=== PATIENT | female | born 1945 | race Caucasian/White ===

== ENCOUNTER 2024-03-19 08:22 | Inpatient (IN) | payer OTHER ==
[~2024-03-19] VITALS: Ht 162.6 cm; Wt 84.1 kg
--- NOTE | 2024-03-19 08:46 | ECG ---
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
--- NOTE | 2024-03-19 08:58 | ED.PDOC ---
HPI (NEURO) HPI Comments 78Y F with PMHx DM, HTN, HLD, PE, breast CA, and colon resection presents to ED for chief complaint lt hand numbness x1day. 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 Per pt, rt arm/hand is not experiencing deficits. Additional symptom includes nausea. Pt denies vomiting, diarrhea, fever, chills, SOB, and chest pain. Pt denies any recent falls. Pt is currently taking Eliquis bid for h/o PE. Allergies include VERN inhibitors. Chief Complaint: Left Sided Weakness Time Seen by MD: 08:36 Primary Care Provider: AGUILA Velez Notes: Medications, Allergies Information Source: Patient Mode of Arrival: Ambulatory Severity: Moderate Headache Severity: None Timing: Days Duration: Since onset Weakness Location: Other (lt hand) Numbness Location: Other (lt hand) Onset: At rest Circumstances: Spontaneous Symptoms: Numbness (lt hand) History of: DM, Hypertension, Cancer Modifying factors: Nothing Associated Signs and Symptoms: Numbness (lt hand) Past Medical History PAST MEDICAL HISTORY: Cancer, DM, High Lipids, HTN, PE Surgical History (Other): colon resection AGING BOX HAND History: No Pertinent AGING BOX HAND History Family History Family History: Unknown Social History Smoker: Non-Smoker Alcohol: Denies ETOH Use Drugs: Denies Drug Use Lives In: Home Constitutional: denies: chills, diaphoresis, fatigue, fever, malaise, sweats, weakness, others EENTM: denies: blurred vision, double vision, ear bleeding, ear discharge, ear drainage, ear pain, ear ringing, eye pain, eye redness, hearing loss, mouth pain, mouth swelling, nasal discharge, nose bleeding, nose congestion, nose pain, photophobia, tearing, throat pain, throat swelling, voice changes, others Respiratory: denies: cough, hemoptysis, orthopnea, SOB at rest, shortness of breath, SOB with excertion, stridor, wheezing, others Cardiovascular: denies: chest pain, dizzy spells, diaphoresis, Dyspnea on exertion, edema, irregular heart beat, left arm pain, lightheadedness, palpitations, PND, syncope, others Gastrointestinal: reports: nausea; denies: abdomen distended, abdominal pain, blood streaked bowels, constipated, diarrhea, dysphagia, difficulty swallowing, hematemesis, melena, poor appetite, poor fluid intake, rectal bleeding, rectal pain, vomiting, others Genitourinary: denies: abnormal vagina bleeding, burning, dyspareunia, dysuria, flank pain, frequency, hematuria, incontinence, pain, , vagina discharge, urgency, others Neurological: reports: left sided numbness (lt hand), numbness (lt hand); denies: dizziness, fainting, headache, left sided weakness, paresthesia, pre- existing deficit, right sided numbness, right sided weakness, seizure, speech problems, tingling, tremors, weakness, others Musculoskeletal: denies: back pain, gout, joint pain, joint swelling, muscle pain, muscle stiffness, neck pain, others Integumetry: denies: bruises, change in color, change in hair/nails, dryness, laceration, lesions, lumps, rash, wounds, others Allergic/Immunocompromised: denies: Difficulty Healing, Frequent Infections, Hives, Itching, others Hematologic/Lymphatic: denies: anemia, blood clots, easy bleeding, easy bruising, swollen glands, others Endocrine: denies: excessive hunger, excessive sweating, excessive thirst, excessive urination, flushing, intolerance to cold, intolerance to heat, unexplained weight gain, unexplained weight loss, others Psychiatric: denies: anxiety, bipolar disorder, depression, hopeless, panic disorder, schizophrenia, sleepless, suicidal, others All Other Systems: Reviewed and Negative Physical Exam General Appearance: No Apparent Distress, Normal HEENT: Normal ENT Inspection, Pharynx Normal, TMs Normal Neck: Full Range of Motion, Non-Tender, Normal, Normal Inspection Respiratory: Chest Non-Tender, Lungs Clear, No Accessory Muscle Use, No Res piratory Distress, Normal Breath Sounds Cardiovascular: No Edema, No JVD, No Murmur, No Gallop, Normal Peripheral Pulses, Regular Rate/Rhythm Breast Exam: Deferred Gastrointestinal: No Organomegaly, Non Tender, No Pulsatile Mass, Normal Bowel Sounds, Soft Genitalia: Deferred Pelvic: Deferred Rectal: Deferred Extremities: No calf tenderness, Normal capillary refill, Normal inspection, Normal range of motion, Non-tender, No pedal edema Musculoskeletal : Location: Left Extremity Location: Hand Apperance: Other (lt hand strength 2/5, rt hand strength 5/5) Neurologic: Alert, Motor Weakness (lt hand strength 2/5, rt hand strength 5/5), Normal Mood, No Sensory Deficits Cerebellar Function: NOT DONE Reflexes: NOT DONE Skin: Dry, Normal Color, Warm Lymphatic: No Adenopathy Was a procedure done? Was a procedure done?: No Differential Diagnosis (SZ) Seizure: N/A CVA: CVA, Electrolyte Imbalance, Encephalopathy, Other (Neurapraxia) General Weakness: N/A Headache: N/A X-Ray, Labs, Meds, VS Vital Signs Date Time Temp Pulse Resp B/P (MAP) Pulse Ox O2 Delivery O2 Flow Rate FiO2 03/19/24 11:05 97.9 65 16 158/84 (108) 98 97.9 03/19/24 11:05 65 16 98 Room Air* 0 21 03/19/24 08:34 63 03/19/24 08:23 98.6 63 16 179/75 (109) 97 Lab Test 03/19/24 10:09 03/19/24 08:59 Range/Units Troponin I High Sensitivity 7 7 </=34 ng/L White Blood Count 7.6 4.4-10.8 10^3/uL Red Blood Count 4.59 4.0-5.20 10^6/uL Hemoglobin 14.0 12.2-16.2 g/dL Hematocrit 42.8 36.0-46.0 % Mean Corpuscular Volume 93.3 80.0-100.0 fL Mean Corpuscular Hemoglobin 30.6 28.0-32.0 pg Mean Corpuscular Hemoglobin Concent 32.7 32.0-36.0 g/dL Red Cell Distribution Width 13.4 11.8-14.3 % Platelet Count 177 140-450 10^3/uL Mean Platelet Volume 9.2 6.9-10.8 fL Neutrophils (%) (Auto) 69.7 37.0-80.0 % Lymphocytes (%) (Auto) 21.6 10.0-50.0 % Monocytes (%) (Auto) 5.8 0.0-12.0 % Eosinophils (%) (Auto) 2.4 0.0-7.0 % Basophils (%) (Auto) 0.5 0.0-2.0 % Neutrophils # (Auto) 5.3 1.6-8.6 10 ^3/uL Lymphocytes # (Auto) 1.6 0.4-5.4 10 ^3/uL Monocytes # (Auto) 0.4 0-1.3 10 ^3/uL Eosinophils # (Auto) 0.2 0-0.8 10 ^3/uL Basophils # (Auto) 0 0-0.2 10 ^3/uL Nucleated Red Blood Cells 0.1 % Prothrombin Time 11.7 9.3-11.8 sec Prothrombin Time INR 1.11 0.9-1.15 Sodium Level 141 136-145 mmol/L Potassium Level 4.8 3.5-5.1 mmol/L Chloride Level 105 98-107 mmol/L Carbon Dioxide Level 26 20-31 mmol/L Anion Gap 10 5-15 Blood Urea Nitrogen 18 9-23 mg/dL Creatinine 0.65 0.550-1.02 mg/dL Glomerular Filtration Rate Calc 90 >90 mL/min BUN/Creatinine Ratio 27.7 H 10.0-20.0 Serum Glucose 96 74-106 mg/dL Lactic Acid Level 1.1 0.4-2.0 mmol/L Calcium Level 9.6 8.7-10.4 mg/dL Time of 1ST Reevaluation: 09:06 Reevaluation 1ST: Unchanged Patient Education/Counseling: Diagnosis, Treatment Family Education/Counseling: No Family Present Additional Information The following tests were ordered, and results were reviewed by me: CBC, BMP, UA, lactic acid, Troponin x3, UA, PT/PTT, CXR, CT head WO contrast, CT angio head/neck I reviewed and agreed with the following test results read by other providers: CXR, CT head WO contrast, CT angio head/neck I discussed treatments and results with medical personnel and hospitalist. Departure 1 Departure Time of Disposition: 11:35 (Patient with left hand weakness that began greater than 24 hours ago. Personally patient's out the window for any acute intervention. CT CTA on my interpretation was negative. I ordered and reviewed the labs which were benign. We will admit patient for further workup and neuro consultation.) Impression: Primary Impression: Left hand weakness Disposition: ADMITTED INPATIENT Admit to: Med Surg Condition: Serious Critical Care Note Critical Care Time?: Yes Critical care comment: Left hand weakness Authorized and Performed by: Vanessa Lopez MD Total critical care time: Approximately 33 minutes Due to a high probability of clinically significant, life threatening deterioration, the patient required my highest level of preparedness to intervene emergently and I personally spent this critical care time directly and personally managing the patient. This critical care time included obtaining a history; examining the patient; pulse oximetry; ordering and review of studies; arranging urgent treatment with development of a management plan; evaluation of patient's response to treatment; frequent reassessment; and, discussions with other providers. This critical care time was performed to assess and manage the high probability of imminent, life-threatening deterioration that could result in multi-organ failure. It was exclusive of separately billable procedures and treating other patients and teaching time. Please see my other sections and the rest of the note for further information on patient assessment and treatment. Stability Stability form required: No I personally scribed for VANESSA LOPEZ MD ([email or web address]) on 03/19/24 at 08:58. Electronically submitted by Kelin Becerril ([email or web address]). VANESSA LOPEZ MD Mar 19, 2024 08:58
[2024-03-19 09:15] LABS: Basophils # (auto) 0 10 ^3/uL (0-0.2); Basophils % (auto) 0.5 % (0.0-2.0); Eosinophils # (auto) 0.2 10 ^3/uL (0-0.8); Eosinophils % (auto) 2.4 % (0.0-7.0); Hematocrit 42.8 % (36.0-46.0); Lymphocytes # (auto) 1.6 10 ^3/uL (0.4-5.4); Lymphocytes % (auto) 21.6 % (10.0-50.0); Mean Corpuscular Hemoglobin 30.6 pg (28.0-32.0); Mean Corpuscular Hgb Conc. 32.7 g/dL (32.0-36.0); Mean Corpuscular Volume 93.3 fL (80.0-100.0); Monocytes # (auto) 0.4 10 ^3/uL (0-1.3); Monocytes % (auto) 5.8 % (0.0-12.0); Neutrophils # (auto) 5.3 10 ^3/uL (1.6-8.6); Neutrophils % (auto) 69.7 % (37.0-80.0); Nucleated Red Blood Cells % 0.1 %; Platelet Count (auto) 177 10^3/uL (140-450); Red Blood Cells 4.59 10^6/uL (4.0-5.20); Red Cell Distribution Width 13.4 % (11.8-14.3); White Blood Cell 7.6 10^3/uL (4.4-10.8)
[2024-03-19 09:18] LABS: Chloride 105 mmol/L (98-107); Sodium 141 mmol/L (136-145)
[2024-03-19 09:19] LABS: Anion Gap 10 (5-15); Calcium 9.6 mg/dL (8.7-10.4); Carbon Dioxide 26 mmol/L (20-31)
[2024-03-19 09:24] LABS: Glucose 96 mg/dL (74-106)
[2024-03-19 09:30] LABS: INR 1.11 (0.9-1.15); Prothrombin Time 11.7 sec (9.3-11.8)
[2024-03-19 09:32] LABS: Potassium 4.8 mmol/L (3.5-5.1)
[2024-03-19 09:35] LABS: BUN/Creatinine Ratio 27.7 (10.0-20.0)
[2024-03-19 09:38] LABS: Blood Urea Nitrogen 18 mg/dL (9-23)
--- NOTE | 2024-03-19 10:22 | DVH ---
CT HEAD WITHOUT CONTRAST INDICATION: left hand weakness EXAM DATE: 03/19/2024 09:31 AM COMPARISON: None RADIATION DOSE: CTDIvol: 53 mGy, DLP: 970 mGy*cm PROCEDURE: CT scans of the head were obtained from the vertex to the skull base. Sagittal and coronal reconstructions were provided. All CT scans at this medical facility are performed using dose modulation techniques as appropriate t o a performed exam including the following: Automated exposure control was utilized; adjustment of th e MA and/or KV according to patient size; and use of iterative reconstruction technique. FINDINGS: There is sulcal and ventricular prominence. The brain otherwise shows normal morphology a nd nuno-white matter differentiation, without intracranial hemorrhage, extra-axial fluid collection, mass effect or acute large vessel infarct.The basal cisterns are patent. The skull and visible facial bones are intact. The paranasal sinuses, mastoid air cells and middle ear cavities are well-aerated. The soft tissues of the scalp are unremarkable. IMPRESSION: No acute intracranial abnormality.
--- NOTE | 2024-03-19 10:30 | DVH ---
CT ANGIO HEAD/Neck INDICATION: left hand weakness EXAM DATE: 03/19/2024 09:31 AM COMPARISON: None RADIATION DOSE: CTDIvol: 21 mGy, DLP: 829 mGy*cm PROCEDURE: CT angiogram images were obtained of the head and neck. Coronal and sagittal reformatted i mages were created as well as 3D and/or MIP reconstructions. All CT scans at this medical facility are performed using dose modulation techniques as appropriate t o a performed exam including the following: Automated exposure control was utilized; adjustment of th e MA and/or KV according to patient size; and use of iterative reconstruction technique. FINDINGS: Head: Please see CT head for further details. On the CT angiographic images, the internal carotid arteries are normal in caliber from the skull bas e to their bifurcations. The anterior and middle cerebral arteries and their branches appear normal. The anterior communicating artery appears normal. The bilateral posterior communicating arteries are not well seen and may be absent or hypoplastic . The vertebral arteries are codominant . The vertebra l, basilar, superior cerebellar, and posterior cerebral arteries are normal in caliber. No aneurysm, arteriovenous malformation, or stenosis is visible. Neck: The common carotid, internal carotid, external carotid, and vertebral arteries are normal in caliber. The vertebral arteries are codominant . The visualized intracranial arteries are normal. There is no evidence of contrast extravasation, filling defects, stenosis, or dissection. The pharynx and airway are normal. There is a 1.3 cm right thyroid nodule. The submandibular, and pa rotid glands appear normal. No lymphadenopathy is seen. The visualized intracranial structures are un remarkable. IMPRESSION: Unremarkable CT angiographic findings of the head and neck without stenosis or occlusions visualized.
[2024-03-19 11:05] VITALS: PULSE 65; RESP 16; O2SAT 98
[2024-03-19] MEDS ORDERED: ACETAMINOPHEN 325 MG TAB PO PRN (13:45)
[2024-03-19] MEDS ORDERED: MORPHINE SULFATE INJ 2 MG/ml SYRG IV PRN ×2 (13:45)
[2024-03-19] MEDS ORDERED: TEMAZEPAM 15 MG CAP PO PRN (13:45)
[2024-03-19] MEDS ORDERED: HYDROcodone-ACET 5/325MG TAB PO PRN (13:45)
[2024-03-19] MEDS ORDERED: ONDANSETRON HCL 4 MG/2 ML VIAL IV PRN (13:45)
[2024-03-19] MEDS ORDERED: NITROGLYCERIN 0.4 MG SL TAB SL PRN (13:45)
[2024-03-19] MEDS ORDERED: DOCUSATE SOD 100 MG CAP PO PRN (13:45)
[2024-03-19] MEDS ORDERED: METO-289 PO (13:46)
[2024-03-19] MEDS ORDERED: POTA-228 PO (13:46)
[2024-03-19] MEDS ORDERED: FURO40TA4 PO (13:46)
[2024-03-19] MEDS ORDERED: APIX2.5T PO (13:46)
[2024-03-19] MEDS ORDERED: LOSA-534 PO (13:46)
[2024-03-19] MEDS ORDERED: GABA-339 PO (13:46)
[2024-03-19] MEDS ORDERED: ATOR-47 PO (13:46)
[2024-03-19] MEDS ORDERED: EZET-10 PO (13:46)
--- NOTE | 2024-03-19 13:53 | DVHHP2 ---
Admitting Diagnosis: Left hand Numbness History of Present Illness Patient is a 78 year old female with DM, HTN, PE and hx of breast cancer complaining of hand numbness. 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 Patient has additional symptoms including nausea. Patient denies fever, chills, sob and ches pain. While in the emergency department the patient was evaluated by the provider, Labs, vital signs, and imagining monitored. Patient will be admitted for further evaluation and treatment. I discussed admission with the patient/family and is in agreement to treatment plan. Allergies: Coded Allergies: VERN Inhibitors (Verified Allergy, Severe, 03/19/24) Home Meds Reported Medications Metoprolol Succinate (Metoprolol Succinate Er) 50 Mg Tab, 1 TAB PO DAILY 03/19/24 Gabapentin (Gabapentin) 600 Mg Tab, 1 TAB PO 03/19/24 Ezetimibe (Ezetimibe) 10 Mg Tab, 1 TAB PO DAILY 03/19/24 Losartan Potassium (Losartan Potassium) 50 Mg Tab, 1 TAB PO DAILY 03/19/24 Potassium Chloride (Potassium Chloride ER) 10 Meq Tab, 1 TAB PO DAILY 03/19/24 Atorvastatin Calcium (ATORVASTATIN CALCIUM) 80 Mg Tab, 1 TAB PO DAILY 03/19/24 Furosemide (Furosemide) 40 Mg Tab, 1 TAB PO DAILY 03/19/24 Apixaban Base (ELIQUIS) 2.5 Mg Tab, 1 TAB PO BID 03/19/24 Current Medications Current Medications Medications (Trade) Dose Ordered Sig/Margaret Route PRN Reason Start Time Stop Time Status Last Admin Acetaminophen/ Hydrocodone Bitart (Harvey 5/325MG Tab) 1 tab Q4HP PRN PO MODERATE PAIN (4-6 PAIN SCALE) 03/19/24 13:45 Temazepam (Restoril) 15 mg QHSP PRN PO FOR INSOMNIA 03/19/24 13:45 Ondansetron HCl (Zofran) 4 mg Q4HP PRN IV NAUSEA / VOMITING 03/19/24 13:45 Docusate Sodium (Colace Capsule) 100 mg BIDPRN PRN PO FOR CONSTIPATION 03/19/24 13:45 Acetaminophen (Tylenol Tablet) 650 mg Q6HP PRN PO PAIN SCALE 1-3 OR TEMP>100.4 03/19/24 13:45 Morphine Sulfate 2 mg Q4HPRN PRN IV SEVERE PAIN (7-10 PAIN SCALE) 03/19/24 13:45 Nitroglycerin (Ntrostat Sublingual) 0.4 mg Q5MINP PRN SL FOR CHEST PAIN 03/19/24 13:45 Morphine Sulfate 2 mg Q30M PRN IV FOR CHEST PAIN 03/19/24 13:45 Apixaban (Eliquis) 2.5 mg BID PO 03/19/24 22:00 EZETIMIBE (Zetia) 10 mg DAILY PO 03/20/24 10:00 Furosemide (Lasix Tablet) 40 mg DAILY PO 03/20/24 10:00 Losartan Potassium (Cozaar Tablet) 50 mg DAILY PO 03/20/24 10:00 Metoprolol Succinate (Toprol Xl) 50 mg DAILY PO 03/20/24 10:00 Atorvastatin Calcium (Lipitor) 80 mg HS PO 03/19/24 22:00 Potassium Chloride (Klor-Con Tablet) 10 meq DAILY PO 03/20/24 10:00 Pantoprazole Sodium (Protonix Tablet) 40 mg DAILY PO 03/20/24 10:00 Review of Systems Constitutional: denies chills, denies fever, denies malaise Eyes: denies eye pain, denies vision change ENT: denies ear pain, denies headache, denies nasal congestion, denies painful swallowing, denies voice change Cardiovascular: denies chest pain, denies edema, denies orthopnea, denies palpitations, denies paroxysmal nocturnal dyspnea Respiratory: denies cough, denies shortness of breath Gastrointestinal: denies constipation, denies diarrhea, denies nausea, denies vomiting Genitourinary: denies dysuria, denies frequent urination, denies urethral discharge Musculoskeletal: denies back pain, denies joint pain, denies muscle pain Skin: denies bruising, denies itching, denies rash Neurological: denies focal weakness, denies headache, denies sensory changes Psychiatric: denies anxiety, denies depression Endocrine: denies polydipsia, denies polyuria Hematologic/Lymphatic: denies easy bleeding, denies easy bruising, denies enlarged lymph nodes Allergic/Immunologic: denies allergy, denies hives Vital Signs Vital Signs Date Time Temp Pulse Resp B/P (MAP) Pulse Ox O2 Delivery O2 Flow Rate FiO2 03/19/24 11:05 97.9 65 16 158/84 (108) 98 97.9 03/19/24 11:05 Room Air* 0 21 Physical Exam General Appearance: alert, no distress HEENT: EOMI, PERRLA, normal external inspect of ears, no icterus, no nasal drainage Neck: no carotid bruit, no jugular venous distention (JVD), no lymphadenopathy Chest: normal thorax Respiratory: clear to auscultation, normal air movement Cardiovascular: regular rate and rhythm, no diastolic murmur, no jugular venous distention (JVD), no rub, no systolic murmur Abdominal: soft, no hepatomegaly, no mass, no splenomegaly, no tenderness Genitourinary: grossly normal external Musculoskeletal: no joint tenderness, no swelling Extremities: normal pulses, no calf tenderness, no clubbing, no cyanosis, no edema Skin: no bruising, no jaundice, no rash Neurological: alert, No focal deficit Results Labs Test 03/19/24 11:40 03/19/24 08:59 Range/Units Troponin I High Sensitivity 7 </=34 ng/L White Blood Count 7.6 4.4-10.8 10^3/uL Red Blood Count 4.59 4.0-5.20 10^6/uL Hemoglobin 14.0 12.2-16.2 g/dL Hematocrit 42.8 36.0-46.0 % Mean Corpuscular Volume 93.3 80.0-100.0 fL Mean Corpuscular Hemoglobin 30.6 28.0-32.0 pg Mean Corpuscular Hemoglobin Concent 32.7 32.0-36.0 g/dL Red Cell Distribution Width 13.4 11.8-14.3 % Platelet Count 177 140-450 10^3/uL Mean Platelet Volume 9.2 6.9-10.8 fL Neutrophils (%) (Auto) 69.7 37.0-80.0 % Lymphocytes (%) (Auto) 21.6 10.0-50.0 % Monocytes (%) (Auto) 5.8 0.0-12.0 % Eosinophils (%) (Auto) 2.4 0.0-7.0 % Basophils (%) (Auto) 0.5 0.0-2.0 % Neutrophils # (Auto) 5.3 1.6-8.6 10 ^3/uL Lymphocytes # (Auto) 1.6 0.4-5.4 10 ^3/uL Monocytes # (Auto) 0.4 0-1.3 10 ^3/uL Eosinophils # (Auto) 0.2 0-0.8 10 ^3/uL Basophils # (Auto) 0 0-0.2 10 ^3/uL Nucleated Red Blood Cells 0.1 % Prothrombin Time 11.7 9.3-11.8 sec Prothrombin Time INR 1.11 0.9-1.15 Sodium Level 141 136-145 mmol/L Potassium Level 4.8 3.5-5.1 mmol/L Chloride Level 105 98-107 mmol/L Carbon Dioxide Level 26 20-31 mmol/L Anion Gap 10 5-15 Blood Urea Nitrogen 18 9-23 mg/dL Creatinine 0.65 0.550-1.02 mg/dL Glomerular Filtration Rate Calc 90 >90 mL/min BUN/Creatinine Ratio 27.7 H 10.0-20.0 Serum Glucose 96 74-106 mg/dL Lactic Acid Level 1.1 0.4-2.0 mmol/L Calcium Level 9.6 8.7-10.4 mg/dL Admitting Diagnosis: 1. Left sided numbness Neurology Consult 2. Chronic Anticoagulation Dvt Prophylaxis 3. Benign Essential Htn Antihypertensives 4. Obesity Diet Education 5. HLD Medication, monitoring 6. Hx Breast Cancer Medication, monitoring 7. Hx colon resection Medication, monitoring Plan discussed with: Patient, Other CHEMO ARCOS NP Mar 19, 2024 13:53
--- NOTE | 2024-03-19 19:12 | DVH ---
CHEST RADIOGRAPH Indication: left hand weakness Technique: Single frontal view of the chest was obtained Comparison: None FINDINGS: Lines and Tubes: None Lungs: No focal consolidation. Pleura: No effusion. No pneumothorax. Cardiomediastinal contours: Unremarkable. Moderate atherosclerotic calcification and uncoiling of th e aorta. Bones: No acute osseous abnormality. IMPRESSION: No acute cardiopulmonary disease.
[2024-03-19] MEDS ORDERED: APIXABAN 2.5 MG TAB PO SCH (22:00)
[2024-03-19] MEDS ORDERED: ATORVASTATIN 20 MG TAB PO SCH (22:00)
[2024-03-19] MEDS: ATORVASTATIN 20 MG TAB PO SCH (23:41)
[2024-03-19] MEDS: APIXABAN 2.5 MG TAB PO SCH (23:41)
[2024-03-20 02:10] VITALS: TEMP 98.2
[2024-03-20 10:00] VITALS: BP 134/40
[2024-03-20] MEDS: POTASSIUM CHL 10 Meq TABLET PO SCH (10:00)
[2024-03-20] MEDS: FUROSEMIDE 40 MG TAB PO SCH (10:00)
[2024-03-20] MEDS: LOSARTAN POTASSIUM 50 MG TAB PO SCH (10:00)
[2024-03-20] MEDS: EZETIMIBE 10 MG TAB PO SCH (10:00)
[2024-03-20] MEDS: PANTOPRAZOLE 40 MG TAB PO SCH (10:00)
[2024-03-20] MEDS: METOPROLOL SUCCINATE XL 50 MG TAB PO SCH (10:00)
--- NOTE | 2024-03-20 10:36 | DVHINCON2 ---
Date of service: Mar 20, 2024 Referring Physician Mary Burton NP Allergies: Coded Allergies: VERN Inhibitors (Verified Allergy, Severe, 03/19/24) Home Meds Reported Medications Metoprolol Succinate (Metoprolol Succinate Er) 50 Mg Tab, 1 TAB PO DAILY 03/19/24 Gabapentin (Gabapentin) 600 Mg Tab, 1 TAB PO 03/19/24 Ezetimibe (Ezetimibe) 10 Mg Tab, 1 TAB PO DAILY 03/19/24 Losartan Potassium (Losartan Potassium) 50 Mg Tab, 1 TAB PO DAILY 03/19/24 Potassium Chloride (Potassium Chloride ER) 10 Meq Tab, 1 TAB PO DAILY 03/19/24 Atorvastatin Calcium (ATORVASTATIN CALCIUM) 80 Mg Tab, 1 TAB PO DAILY 03/19/24 Furosemide (Furosemide) 40 Mg Tab, 1 TAB PO DAILY 03/19/24 Apixaban Base (ELIQUIS) 2.5 Mg Tab, 1 TAB PO BID 03/19/24 Current Medications Current Medications Medications (Trade) Dose Ordered Sig/Margaret Route PRN Reason Start Time Stop Time Status Last Admin Acetaminophen/ Hydrocodone Bitart (Panther 5/325MG Tab) 1 tab Q4HP PRN PO MODERATE PAIN (4-6 PAIN SCALE) 03/19/24 13:45 Temazepam (Restoril) 15 mg QHSP PRN PO FOR INSOMNIA 03/19/24 13:45 Ondansetron HCl (Zofran) 4 mg Q4HP PRN IV NAUSEA / VOMITING 03/19/24 13:45 Docusate Sodium (Colace Capsule) 100 mg BIDPRN PRN PO FOR CONSTIPATION 03/19/24 13:45 Acetaminophen (Tylenol Tablet) 650 mg Q6HP PRN PO PAIN SCALE 1-3 OR TEMP>100.4 03/19/24 13:45 Morphine Sulfate 2 mg Q4HPRN PRN IV SEVERE PAIN (7-10 PAIN SCALE) 03/19/24 13:45 Nitroglycerin (Ntrostat Sublingual) 0.4 mg Q5MINP PRN SL FOR CHEST PAIN 03/19/24 13:45 Morphine Sulfate 2 mg Q30M PRN IV FOR CHEST PAIN 03/19/24 13:45 Apixaban (Eliquis) 2.5 mg BID PO 03/19/24 22:00 03/19/24 23:21 DC EZETIMIBE (Zetia) 10 mg DAILY PO 03/20/24 10:00 Furosemide (Lasix Tablet) 40 mg DAILY PO 03/20/24 10:00 Losartan Potassium (Cozaar Tablet) 50 mg DAILY PO 03/20/24 10:00 Metoprolol Succinate (Toprol Xl) 50 mg DAILY PO 03/20/24 10:00 Atorvastatin Calcium (Lipitor) 80 mg HS PO 03/19/24 22:00 03/19/24 23:21 DC Potassium Chloride (Klor-Con Tablet) 10 meq DAILY PO 03/20/24 10:00 Pantoprazole Sodium (Protonix Tablet) 40 mg DAILY PO 03/20/24 10:00 Apixaban (Eliquis) 2.5 mg BID PO 03/19/24 23:29 03/19/24 23:41 Atorvastatin Calcium (Lipitor) 80 mg HS PO 03/19/24 23:29 03/19/24 23:41 Vital Signs Vital Signs Date Time Temp Pulse Resp B/P (MAP) Pulse Ox O2 Delivery O2 Flow Rate FiO2 03/20/24 06:00 76 14 134/44 (74) 94 03/20/24 02:30 Nasal Cannula* 2 28 03/20/24 02:10 98.2 98.2 Labs/Diagnostic Data Labs Test 03/19/24 11:40 03/19/24 08:59 Range/Units Troponin I High Sensitivity 7 </=34 ng/L White Blood Count 7.6 4.4-10.8 10^3/uL Red Blood Count 4.59 4.0-5.20 10^6/uL Hemoglobin 14.0 12.2-16.2 g/dL Hematocrit 42.8 36.0-46.0 % Mean Corpuscular Volume 93.3 80.0-100.0 fL Mean Corpuscular Hemoglobin 30.6 28.0-32.0 pg Mean Corpuscular Hemoglobin Concent 32.7 32.0-36.0 g/dL Red Cell Distribution Width 13.4 11.8-14.3 % Platelet Count 177 140-450 10^3/uL Mean Platelet Volume 9.2 6.9-10.8 fL Neutrophils (%) (Auto) 69.7 37.0-80.0 % Lymphocytes (%) (Auto) 21.6 10.0-50.0 % Monocytes (%) (Auto) 5.8 0.0-12.0 % Eosinophils (%) (Auto) 2.4 0.0-7.0 % Basophils (%) (Auto) 0.5 0.0-2.0 % Neutrophils # (Auto) 5.3 1.6-8.6 10 ^3/uL Lymphocytes # (Auto) 1.6 0.4-5.4 10 ^3/uL Monocytes # (Auto) 0.4 0-1.3 10 ^3/uL Eosinophils # (Auto) 0.2 0-0.8 10 ^3/uL Basophils # (Auto) 0 0-0.2 10 ^3/uL Nucleated Red Blood Cells 0.1 % Prothrombin Time 11.7 9.3-11.8 sec Prothrombin Time INR 1.11 0.9-1.15 Sodium Level 141 136-145 mmol/L Potassium Level 4.8 3.5-5.1 mmol/L Chloride Level 105 98-107 mmol/L Carbon Dioxide Level 26 20-31 mmol/L Anion Gap 10 5-15 Blood Urea Nitrogen 18 9-23 mg/dL Creatinine 0.65 0.550-1.02 mg/dL Glomerular Filtration Rate Calc 90 >90 mL/min BUN/Creatinine Ratio 27.7 H 10.0-20.0 Serum Glucose 96 74-106 mg/dL Lactic Acid Level 1.1 0.4-2.0 mmol/L Calcium Level 9.6 8.7-10.4 mg/dL Plan discussed with: Patient, Other (RN) Provider Statement: I have reviewed the case with my supervising physician. We have agreed with the plan of care. CHASITY COLBY Mar 20, 2024 10:36
--- NOTE | 2024-03-20 10:50 | DVHDS2 ---
Discharge Summary Date of Admission Mar 19, 2024 at 13:42 Date of Discharge: Mar 20, 2024 Labs/Diagnostic Data: Laboratory Results Test 03/19/24 11:40 03/19/24 08:59 Troponin I High Sensitivity 7 ng/L (</=34) White Blood Count 7.6 10^3/uL (4.4-10.8) Red Blood Count 4.59 10^6/uL (4.0-5.20) Hemoglobin 14.0 g/dL (12.2-16.2) Hematocrit 42.8 % (36.0-46.0) Mean Corpuscular Volume 93.3 fL (80.0-100.0) Mean Corpuscular Hemoglobin 30.6 pg (28.0-32.0) Mean Corpuscular Hemoglobin Concent 32.7 g/dL (32.0-36.0) Red Cell Distribution Width 13.4 % (11.8-14.3) Platelet Count 177 10^3/uL (140-450) Mean Platelet Volume 9.2 fL (6.9-10.8) Neutrophils (%) (Auto) 69.7 % (37.0-80.0) Lymphocytes (%) (Auto) 21.6 % (10.0-50.0) Monocytes (%) (Auto) 5.8 % (0.0-12.0) Eosinophils (%) (Auto) 2.4 % (0.0-7.0) Basophils (%) (Auto) 0.5 % (0.0-2.0) Neutrophils # (Auto) 5.3 10 ^3/uL (1.6-8.6) Lymphocytes # (Auto) 1.6 10 ^3/uL (0.4-5.4) Monocytes # (Auto) 0.4 10 ^3/uL (0-1.3) Eosinophils # (Auto) 0.2 10 ^3/uL (0-0.8) Basophils # (Auto) 0 10 ^3/uL (0-0.2) Nucleated Red Blood Cells 0.1 % Prothrombin Time 11.7 sec (9.3-11.8) Prothrombin Time INR 1.11 (0.9-1.15) Sodium Level 141 mmol/L (136-145) Potassium Level 4.8 mmol/L (3.5-5.1) Chloride Level 105 mmol/L (98-107) Carbon Dioxide Level 26 mmol/L (20-31) Anion Gap 10 (5-15) Blood Urea Nitrogen 18 mg/dL (9-23) Creatinine 0.65 mg/dL (0.550-1.02) Glomerular Filtration Rate Calc 90 mL/min (>90) BUN/Creatinine Ratio 27.7 (10.0-20.0) Serum Glucose 96 mg/dL (74-106) Lactic Acid Level 1.1 mmol/L (0.4-2.0) Calcium Level 9.6 mg/dL (8.7-10.4) Other Laboratory Tests 03/19/24 08:59 Brief Hx & Hospital Course: Patient is a 78 year old female with DM, HTN, PE and hx of breast cancer complaining of hand numbness. 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 Patient has additional symptoms including nausea. Patient denies fever, chills, sob and ches pain. While in the emergency department the patient was evaluated by the provider, Labs, vital signs, and imagining monitored. Patient will be admitted for further evaluation and treatment. I discussed admission with the patient/family and is in agreement to treatment plan. Patient was admitted for left hand weakness. Patient states it was only her hand that was weak. She does have a history of severe arthritis. 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 She does not believe she had a TIA. Patient states she was at baseline in the emergency room last night. Patient does not want to leave AGAINST MEDICAL ADVICE. Patient states that if her condition worsens she will return to the emergency room. Patient appears to not have any deficits due to her only having left hand weakness and not left arm weakness. I do believe she is safe to go home she will follow-up with her PCP Dr. Phelps in 1 week. The patient received proper medical treatment and medications. Vital signs, Imaging and Laboratory Work was monitored daily. All consults recommendations were followed as provided. There were no complaints or new complaints upon discharge, all questions and concerns were answered. Patient was advised to return to the ER or call 911 if any headaches, dizziness, shortness of breath, chest pain, bleeding, fevers, or worsening of medical condition. Patient/Family was counseled about treatment plan, medications, possible side effects, patient verbalized understanding. All questions were answered to the best of my ability. The patient symptoms improved and they are okay to be DC. Condition at Discharge: Stable Final Diagnosis/Problems List Left sided numbness Chronic Anticoagulation Benign Essential Htn Obesity HLD Hx Breast Cancer Hx colon resection Discharge Disposition: Home Discharge Statement: "Patient was advised to return to the ER or call 911 if any headaches, dizziness, shortness of breath, chest pain, abdominal pain, bleeding, fevers, or worsening of medical condition. Patient was counseled about treatment plan, medications, possible side effects, patientverbalized understanding. All questions were answered to the best of my ability. This discharge took greater then 30 minutes in planning, reviewing documentation, counseling the patient, and discussing with other team members." ASSESSMENT ASSESSMENT Assessment CHEMO ARCOS NP Mar 20, 2024 10:50
[2024-03-20 12:05] VITALS: PULSE 64; RESP 14; O2SAT 98
== END 2024-03-20 12:41 | disposition home or self-care (01) | DRG 74 ==
LOC: ER 08:22 → TELE 13:42 → ER 14:34
PROVIDERS: ADMIT Nurse Practitioner; ATTEND Nurse Practitioner
DX: E11.40 Type 2 diabetes mellitus with diabetic neuropathy, unspecified (principal); I10 Essential (primary) hypertension; E78.5 Hyperlipidemia, unspecified; E66.9 Obesity, unspecified; Z85.3 Personal history of malignant neoplasm of breast; Z79.01 Long term (current) use of anticoagulants; Z86.711 Personal history of pulmonary embolism; Z88.8 Allergy status to other drugs, medicaments and biological substances; Z68.31 Body mass index [BMI] 31.0-31.9, adult
CPT/HCPCS: 36415; 70450; 70496; 71045; 80048; 83605; 84484; 85025; 85610; 93005; 97163; G0378